=== PATIENT | male | born 1965 | race Caucasian/White ===

== ENCOUNTER 2018-10-21 11:37 | Inpatient (IN) | payer OTHER ==
[~2018-10-21] VITALS: Ht 175.3 cm; Wt 81.6 kg
[2018-10-27] MEDS ORDERED: HUMULIN (14:15)
[2018-10-27] MEDS ORDERED: GLIPIZIDE ER10 MG PO (14:16)
[2018-10-27] MEDS ORDERED: HUM (14:16)
[2018-10-27] MEDS ORDERED: METFORMIN HCL850 MG PO (14:16)
[2018-10-27] MEDS ORDERED: PROTONIX40 M1 PO (14:17)
[2018-10-27] MEDS ORDERED: ZOCOR PO (14:17)
[2018-10-27] MEDS ORDERED: TOPROL XL50 M1 PO (14:18)
[2018-10-27] MEDS ORDERED: ENALAPRIL MALE2.5 MG PO (14:18)
[2018-10-27] MEDS ORDERED: ISORBIDE PO (14:18)
[2018-11-04] MEDS ORDERED: ISOSORBIDE MONO30 MG PO (09:41)
[2018-11-04] MEDS ORDERED: SIMVASTATIN10 MG PO (09:42)
== END 2018-11-04 12:04 | disposition home or self-care (01) | DRG 331 ==
LOC: EDSEX 11-02 05:20 → O/R 11-02 05:20 → SURG 11-02 05:20
PROVIDERS: ADMIT Colon & Rectal Surgery
PROC: 0D1N0Z4 Bypass Sigmoid Colon to Cutaneous, Open Approach (ICD-10-PCS; principal; 2018-11-02 14:00)
DX: C19 Malignant neoplasm of rectosigmoid junction (principal); E11.9 Type 2 diabetes mellitus without complications; I25.10 Atherosclerotic heart disease of native coronary artery without angina pectoris; I10 Essential (primary) hypertension

== ENCOUNTER 2022-01-25 22:11 | Inpatient (IN) | payer OTHER ==
[~2022-01-25] VITALS: Ht 175.3 cm; Wt 72.6 kg
[~2022-01-25 22:11] MED LIST: ENALAPRIL MALE2.5 MG PO; GLIPIZIDE ER10 MG PO; HUM; HUMULIN; ISORBIDE PO; ISOSORBIDE MONO30 MG PO; METFORMIN HCL850 MG PO; PROTONIX40 M1 PO; SIMVASTATIN10 MG PO; TOPROL XL50 M1 PO; ZOCOR PO
--- NOTE | 2022-01-25 22:17 | NUR ---
PTE ALERTA Y ORIENTADO POR ANA ESFERAS CON BUEN PATRON RESPIRATORIO, REFIERE QUE VIENE POR SANGRADO EN COLOSTOMIA, PTE ES DE . PTE CON HX DE CA COLON, MEDPORT EN LADO DERECHO.
[2022-01-28] MEDS ORDERED: METFORMIN HCL850 M1 (08:21)
== END 2022-01-29 12:53 | disposition expired | DRG 393 ==
LOC: ER 22:11 → MEDJ 01-26 06:13
PROVIDERS: ADMIT Internal Medicine; ATTEND Internal Medicine
PROC: 4A12X4Z Monitoring of Cardiac Electrical Activity, External Approach (ICD-10-PCS; 2022-01-26)
PROC: 30233N1 Transfusion of Nonautologous Red Blood Cells into Peripheral Vein, Percutaneous Approach (ICD-10-PCS; principal; 2022-01-27)
PROC: 30233K1 Transfusion of Nonautologous Frozen Plasma into Peripheral Vein, Percutaneous Approach (ICD-10-PCS; 2022-01-29)
DX: K94.01 Colostomy hemorrhage (principal); D65 Disseminated intravascular coagulation [defibrination syndrome]; C19 Malignant neoplasm of rectosigmoid junction; C79.51 Secondary malignant neoplasm of bone; C78.01 Secondary malignant neoplasm of right lung; C78.02 Secondary malignant neoplasm of left lung; D62 Acute posthemorrhagic anemia; N39.0 Urinary tract infection, site not specified; B96.29 Other Escherichia coli [E. coli] as the cause of diseases classified elsewhere; Z66 Do not resuscitate; I25.10 Atherosclerotic heart disease of native coronary artery without angina pectoris; I11.9 Hypertensive heart disease without heart failure